=== PATIENT | female | born 2000 | race Caucasian/White ===

== ENCOUNTER 2024-08-03 15:04 | Outpatient (RCR) | payer BC, SELFPAY ==
[2024-08-03 16:14] LABS: HCG Quantitative 222 mIU/mL
[2024-08-05 11:12] LABS: HCG Quantitative 85 mIU/mL
== END 2024-08-24 09:55 | disposition home or self-care (01) ==
LOC: LAB 15:04
PROVIDERS: PCP Family Medicine; Visit Provider Obstetrics & Gynecology
DX: O20.0 Threatened abortion (principal)
CPT/HCPCS: 36415; 84702

== ENCOUNTER 2024-08-12 13:32 | Outpatient (OUT) | payer BC, SELFPAY ==
[2024-08-12 14:25] LABS: HCG Quantitative 4 mIU/mL
== END 2024-08-12 13:33 | disposition home or self-care (01) ==
LOC: LAB 13:35
PROVIDERS: PCP Family Medicine; Visit Provider Obstetrics & Gynecology
DX: O03.9 Complete or unspecified spontaneous abortion without complication (principal); O02.89 Other abnormal products of conception
CPT/HCPCS: 36415; 84702